=== PATIENT | male | born 1955 | race Native Hawaiian/Other Pacific Islander ===

== ENCOUNTER 2021-11-23 13:36 | Outpatient (CLI) | payer OTHER, MEDICARE ==
[~2021-11-23 13:36] MED LIST: ASA LO-DOSE81 MG PO; CLOP75TA2 PO; METO25TA4 PO; VYTORIN1 TA3 PO
[2021-11-23 14:06] LABS: PLATELET COUNT 461 K/uL (142-355)
[2021-11-23 14:13] LABS: POTASSIUM 3.8 mmol/L (3.6-5.2)
== END 2021-11-23 19:26 | disposition home or self-care (01) ==
LOC: LABW 13:36
PROVIDERS: ATTEND Physician Assistant
DX: I25.10 Atherosclerotic heart disease of native coronary artery without angina pectoris (principal); R06.09 Other forms of dyspnea
CPT/HCPCS: 36415; 80048; 83880; 85027